=== PATIENT | female | born 1990 | race Two or more races ===

== ENCOUNTER 2023-10-17 13:35 | Emergency (ER) | payer OTHER, SELFPAY ==
[2023-10-17 13:42] VITALS: BP 138/89; PULSE 71; RESP 18; TEMP 36.8; O2SAT 97; BMI 49.9
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
--- NOTE | 2023-10-17 15:29 | ED.NURSE ---
Patient called to say the medication was not sent to pharmacy. Called the antibiotic in to [facility] talking to the pharmacist.
== END 2023-10-17 14:39 | disposition home or self-care (01) ==
LOC: ED 14:29
PROVIDERS: Emergency Provider Emergency Medicine
DX: K12.2 Cellulitis and abscess of mouth (principal)
CPT/HCPCS: 99282; 99283